=== PATIENT | female | born 1990 | race Caucasian/White ===

== ENCOUNTER 2019-04-13 05:03 | Emergency (ER) | payer BC, OTHER ==
--- OUTSIDE RECORDS SUMMARY | 2019-04-13 05:06 | XMS REPORT ---
:1990 [facility] Address [address] [place] [address] Dr. Arguelles [address] [place] [address] Care Team Providers Name Role Phone Unavailable Unavailable Unavailable Problems This patient has no known problems. Allergies, Adverse Reactions, Alerts This patient has no known allergies or adverse reactions. Medications This patient has no known medications.
--- OUTSIDE RECORDS SUMMARY | 2019-04-13 05:06 | XMS REPORT | Summary of Care ---
:1990 Author Organization [facility] - Health Address [address] [place] [address] Care Team Providers Name Role Phone Sergio Sebastien MARTIN Primary Care Provider Encounter Details Date Type Department Care Team Description 11/02/2018 Orders Only [facility] Doctor Unassigned, No [address] [facility] [place] [address] [address] [place] [phone] Allergies Active Allergy Reactions Severity Noted Date Comments Morphine Itching, Rash, Swelling 05/03/2016 documented as of this encounter (statuses as of 11/02/2018) Medications Medication Sig Dispensed Refills Start Date End Date Status metFORMIN 500 mg tablet Take 500 mg by 0 Active mouth daily. lisinopril-hydrochlorot Take 1 tablet by 0 Active hiazide 10-12.5 mg per mouth daily. tablet pantoprazole 40 mg EC Take 1 tablet by 30 tablet 0 03/30/2017 Active tablet mouth daily. ALPRAZolam 1 mg tablet TAKE 1 TABLET BY 2 04/02/2017 Active MOUTH AT BEDTIME ibuprofen 600 mg tablet TK 1 T PO BID 2 03/26/2017 Active Benzocaine (AMERICAINE) Insert into 1 Tube 0 06/23/2018 Active 20 % OintIndications: rectum every 4 Grade II hemorrhoids (four) hours as needed for Itching. documented as of this encounter (statuses as of 11/02/2018) Active Problems Problem Noted Date Abdominal pain 03/30/2017 Morbid obesity with body mass index of 50 or higher 03/30/2017 Intramural leiomyoma of uterus 05/03/2016 Abnormal menses 05/03/2016 Tubal ligation status 05/03/2016 documented as of this encounter (statuses as of 11/02/2018) Immunizations Name Administration Dates Next Due Tdap 05/03/2013 documented as of this encounter Social History Tobacco Use Types Packs/Day Years Used Date Never Smoker Smokeless Tobacco: Never Used Alcohol Use Drinks/Week oz/Week Comments No 0 Standard drinks or equivalent 0.0 Sex Assigned at Date Recorded Not on file Job Start Date Occupation Industry Not on file Not on file Not on file Travel History Travel Start Travel End No recent travel history available. documented as of this encounter Last Filed Vital Signs Not on filedocumented in this encounter Plan of Treatment Health Maintenance Due Date Last Done Comments VARICELLA VACCINES (1 of 2 - 13+ 2001 2-dose series) PAP SMEAR 2009 INFLUENZA VACCINE 12/07/2018 DTaP,Tdap,and Td Vaccines (2 - Td) 05/03/2023 05/03/2013 PNEUMOCOCCAL 0-64 YEARS COMBINED Aged Out No longer eligible based on SERIES patient's age to complete this topic documented as of this encounter Procedures Procedure Name Priority Date/Time Associated Diagnosis Comments CONSENT/REFUSAL FOR Routine 11/02/2018 8:37 PM CDT DIAGNOSIS AND TREATMENT documented in this encounter Results Not on filedocumented in this encounter Insurance Payer Benefit Plan Subscriber ID Effective Dates Phone Address Type / Group BCBS OF [facility] [id number] 2016-Any [phone] [address] PPO/POS [place] t [id number] [place] [address] documented as of this encounter
--- OUTSIDE RECORDS SUMMARY | 2019-04-13 05:07 | XMS REPORT | Summary of Care ---
:1990 Author Organization [facility] Address [address] [place] [address] Care Team Providers Name Role Phone Sebastien Hill Primary Care Provider Reason for Visit Reason Comments Epigastric Pain Vomiting Diarrhea Auth/Cert Status Reason Specialty Diagnoses / Referred By Referred To Procedures Contact Contact [facility] [address] [place] [address] Encounter Details Date Type Department Care Team Description 11/02/2018 Emergency ADC-Emergency Isreal Lockwood APN [address] [place], [place] [id number] Generalized abdominal pain (Primary Dx); Department Edwardo Conroy MD [address] [facility] [address] [place], [place] [id number] Epigastric pain [address] [place], [place] [id number] Allergies Active Allergy Reactions Severity Noted Date [...] hemorrhoids (four) hours as needed for Itching. sucralfate 1 gram Take 1 tablet by 30 tablet 0 11/02/2018 Active tabletIndications: mouth before Epigastric pain meals and at bedtime. ondansetron 4 mg Take 1 tablet by 20 tablet 0 11/02/2018 Active disintegrating mouth every 4 tabletIndications: (four) hours as Epigastric pain needed for Nausea and Vomiting (N/V). Pantoprazole (PROTONIX) Take 40 mg by 30 mg 0 11/02/2018 Active 40 mg delayed-release mouth daily. suspensionIndications: Epigastric pain documented as of this encounter (statuses as [...] of this encounter Last Filed Vital Signs Vital Sign Reading Time Taken Comments Blood Pressure 142/95 11/02/2018 11:00 PM CDT Pulse 61 11/02/2018 11:00 PM CDT Temperature 36.8 C (98.3 F) 11/02/2018 8:50 PM CDT Respiratory Rate 16 11/02/2018 11:00 PM CDT Oxygen Saturation 100% 11/02/2018 11:00 PM CDT Inhaled Oxygen Concentration - - Weight 97.1 kg (214 lb) 11/02/2018 8:50 PM CDT Height - - Body Mass Index 35.61 06/23/2018 11:06 AM CDT documented in this encounter Discharge Instructions InstructionsNewman, Edwardo, MD - 11/02/2018 RETURN FOR ANY QUESTIONS OR CONCERNS Today you were seen by Edwardo Conroy Jr., MD You were seen today for Chief Complaint Patient presents with Epigastric Pain Vomiting Diarrhea Your ER diagnosis was ICD-10-CM ICD-9-CM 1. Generalized abdominal pain R10.84 789.07 2. Epigastric pain R10.13 789.06 NO LIFE-THREATENING FINDINGS ON TODAY'S EXAM. YOUR PRESCRIPTIONS : Check out [employer] With Me for medication discounts Medication List ASK your doctor about these medications ALPRAZolam 1 mg tablet Commonly known as: XANAX Benzocaine 20 % Oint Commonly known as: AMERICAINE Insert into rectum every 4 (four) hours as needed for Itching. ibuprofen 600 mg tablet Commonly known as: IBU lisinopril-hydrochlorothiazide 10-12.5 mg per tablet Commonly known as: PRINZIDE,ZESTORETIC metFORMIN 500 mg tablet Commonly known as: GLUCOPHAGE pantoprazole 40 mg EC tablet Commonly known as: PROTONIX Take 1 tablet by mouth daily. ER precautions and follow up : 1. Return to ER if your symptoms should worsen or fail to improve within 72 hours. 2. The care provided in the emergency room was for acute problems only. 3. You should follow up with your primary care provider within 72 hours. 4. Fill and take all your medications as prescribed. 5. Make sure you are staying adequately hydrated. Busque attencion immediatamente si usted tiene los sitomas sigue, vuelve peor o si hay sitomas nuevas o para cualquiera preoccupacion incluyendo dolor del pecho , falta aire, se siente debile, mas fievre, mas dolor, nausea, vomitando, sangrando que no es normal, confusion, baja or pierdas conciencia. MAY FOLLOW-UP WITH A PROVIDER OF YOUR CHOICE, SUCH : 1. A PHYSICIAN OF YOUR CHOICE 2. [facility], . LOCATIONS IN [place] 3. [facility], [address] [place] [address]; OR, IF YOU WISH TO FOLLOW-UP WITHIN THE [facility], MAY TRY THESE OPTIONS (CLINIC APPOINTMENTS AVAILABLE ON IAVH-FB-BSLK BASIS): 1. SCHEDULE AN APPOINTMENT ONLINE AT WWW.[facility] 2. OR CALL THE [facility] ACCESS CENTER AT OR 3. OR CALL YOUR [facility] PHYSICIAN'S OFFICE DIRECTLY IF YOU ARE ALREADY AN ESTABLISHED [facility] PATIENT. [facility] RETURN TO WORK / SCHOOL EXCUSE Kaity Romeo WAS SEEN IN THE ER AND DISCHARGED 11/02/2018 TODAY, 10:38 PM & May return to Work / School / Incarceration on X with activity as tolerated indicated below. ___The following limitations apply until pt is seen by Physician and cleared to return to normal activity. _X_ Off for two days and return to activity as tolerated at work or school ___ No Sports ___ No work ___ Do not return until fever free for 24 hours. ___ No school EDWARDO CONROY Jr., MD [facility] EMERGENCY DEPRTMENT [address] [place] [address] [place] [address] ### The patient may have been given Narcotic pain medications during their stay in the ED that may show up on a Drug Screen. The hospital discharge paper work will identify these medications. AttachmentsThe following attachments cannot be sent through Care Everywhere.Peptic Ulcer Disease (All Causes) (German)Gastritis (Adult) (German )documented in this encounter Plan of Treatment Health [...] Procedure Name Priority Date/Time Associated Diagnosis Comments POCT TEST SHADY 11/02/2018 10:18 Generalized Results for this PM CDT abdominal pain procedure are in the results section. URINALYSIS STAT 11/02/2018 10:08 Generalized Results for this PM CDT abdominal pain procedure are in the results section. CBC WITH DIFFERENTIAL STAT 11/02/2018 9:40 Generalized Results for this PM CDT abdominal pain procedure are in the results section. CBC WITH DIFF Routine 11/02/2018 9:40 Generalized Results for this PM CDT abdominal pain procedure are in the results section. COMP. METABOLIC PANEL STAT 11/02/2018 9:40 Generalized Results for this (94564) PM CDT abdominal pain procedure are in the results section. LIPASE STAT 11/02/2018 9:40 Generalized Results for this PM CDT abdominal pain procedure are in the results section. documented in this encounter Results POCT TEST (11/02/2018 10:18 PM CDT) Pathologist [facility] POCT PREG Negative On board controls acceptable Present with C Line POCT PREG LOT # [id number] POCT PREG TEST DATE 04/07/2020 Specimen Urine - URINE, CLEAN CATCH URINALYSIS (11/02/2018 10:08 PM CDT) [facility] APPEARANCE Hazy (A) Clear [facility] COLOR Yellow Yellow [facility] PH 6.0 4.8 - 8.0 [facility] SP GRAVITY 1.025 1.003 - 1.030 [facility] GLU U QUAL Negative Negative [facility] BLOOD Negative Negative [facility] KETONES Negative Negative [facility] PROTEIN Trace (A) Negative [facility] UROBILIN 0.2 mg/dL 0-1.0 mg/dL [facility] BILIRUBIN Negative Negative [facility] NITRITE Negative Negative [facility] LEUK YESSENIA Negative Negative [facility] RBC/HPF 2 0 - 3 HPF [facility] WBC/HPF 2 0 - 5 HPF [facility] BACTERIA Few (A) Negative [facility] SQ EPITH 20 HPF [facility] Specimen Urine - URINE, CLEAN CATCH Performing Organization Address City/State/Zipcode Phone Number [facility] CLIA: [id number], [address] [place] [address] CBC WITH DIFFERENTIAL (11/02/2018 9:40 PM CDT) [facility] WBC 7.35 4.30 - 11.10 [facility] 10*3/L [facility] RBC 4.43 3.93 - 5.25 [facility] 10*6/L [facility] HGB 10.4 (L) 11.6 - 15.0 [facility] g/dL [facility] HCT 33.2 (L) 35.7 - 45.2 % [facility] MCV 74.9 (L) 80.6 - 95.5 fL [facility] MCH 23.5 (L) 25.9 - 32.8 pg [facility] MCHC 31.3 (L) 31.6 - 35.1 [facility] g/dL [facility] RDW-SD 40.7 39.0 - 49.9 fL [facility] RDW-CV 15.0 12.0 - 15.5 % [facility] PLT 228 166 - 358 [facility] 10*3/L [facility] MPV 12.5 9.5 - 12.9 fL [facility] NRBC/100 WBC 0.0 0.0 - 10.0 /100 [facility] WBCs [facility] NRBC x10^3 <0.01 10*3/L [facility] GRAN MAT (NEUT) % 51.5 % [facility] IMM GRAN % 0.10 % [facility] LYMPH % 40.8 % [facility] MONO % 5.4 % [facility] EOS % 1.8 % [facility] BASO % 0.4 % [facility] GRAN MAT x10^3(ANC) 3.78 1.88 - 7.09 [facility] 10*3/uL [facility] IMM GRAN x10^3 <0.03 0.00 - 0.06 [facility] 10*3/uL [facility] LYMPH x10^3 3.00 1.32 - 3.29 [facility] 10*3/uL [facility] MONO x10^3 0.40 0.33 - 0.92 [facility] 10*3/uL [facility] EOS x10^3 0.13 0.03 - 0.39 [facility] 10*3/uL [facility] BASO x10^3 0.03 0.01 - 0.07 [facility] 10*3/uL [facility] Specimen Blood - VENOUS Performing Organization Address City/State/Zipcode Phone Number [facility] CLIA: [id number], [address] [place] [address] LIPASE (11/02/2018 9:40 PM CDT) LIPASE 109 0 - 220 U/L [facility] Specimen Blood - VENOUS Performing Organization Address City/State/Zipcode Phone Number [facility] CLIA: [id number], [address] [place] [address] COMP. METABOLIC PANEL ([id number]) (11/02/2018 9:40 PM CDT) NA 145 135 - 145 [facility] mmol/L [facility] K 4.0 3.5 - 5.0 [facility] mmol/L [facility] CL 111 (H) 98 - 108 mmol/L [facility] CO2 TOTAL 26 23 - 31 mmol/L [facility] AGAP 8 2 - 16 [facility] BUN 9 7 - 23 mg/dL [facility] GLUCOSE 83 70 - 110 mg/dL [facility] CREATININE 0.56 0.50 - 1.04 [facility] mg/dL [facility] TOTAL BILI 0.3 0.1 - 1.1 mg/dL [facility] CALCIUM 9.1 8.6 - 10.6 [facility] mg/dL [facility] T PROTEIN 7.6 6.3 - 8.2 g/dL [facility] ALBUMIN 4.3 3.5 - 5.0 g/dL [facility] ALK PHOS 93 34 - 122 U/L [facility] ALT(SGPT) 17 9 - 51 U/L [facility] AST(SGOT) 16 13 - 40 U/L [facility] eGFR Calculation 127.1 mL/min/1.73m2 [facility] ([facility] LABORATORY [place]) eGFR Calculation 154.1 mL/min/1.73m2 [facility] () [facility] Specimen Blood - VENOUS Narrative Performed At Association of Glomerular Filtration Rate (GFR) [facility] LABORATORY and Staging of Kidney Disease* + + +- + | GFR (mL/min/1.73 m2)| With Kidney Damage|Without Kidney Damage + + +- + |>90| Stage one| Normal + + +- + |60-89|S tage two| Decreased GFR + + +- + |30-59|S tage three| Stage three + + +- + |15-29|S tage four | Stage four + + +- + |<15 (or dialysis)|Stage five | Stage five + + +- + *Each stage assumes the associated GFR level has been in effect for at least three months.Stages 1 to 5, with or without kidney disease, indicate chronic kidney disease. Notes: Determination of stages one and two (with eGFR >59mL/min/1.73 m2) requires estimation of kidney damage for at least three months as defined by structural or functional abnormalities of the kidney, manifested by either: Pathological abnormalities or Markers of kidney damage (including abnormalities in the composition of the blood or urine or abnormalities in imaging tests). Performing Organization Address City/State/Zipcode Phone Number [facility] CLIA: [id number], [address] [place] [address] [facility] [address] documented in this encounter Visit Diagnoses Diagnosis Generalized abdominal pain - Primary Abdominal pain, generalized Epigastric pain Abdominal pain, epigastric documented in this encounter Administered Medications Medication Order MAR Action Action Date Dose Rate Site FENTanyl PF (SUBLIMAZE (PF)) Given 11/02/2018 10:08 PM CDT 50 mcg injection 50 mcg 50 mcg, Slow IV Push, ONCE, 1 dose, 11/02/18 at 2230, STAT NaCl 0.9% (NS) bolus infusion New Bag 11/02/2018 10:08 PM CDT 1,000 mL 999 mL/hr 1,000 mL at 999 mL/hr, 1,000 mL, IV Infusion, ONCE, 1 dose, 11/02/18 at 2230, STAT proMETHazine (PHENERGAN) 12.5 mg in NaCl Given 11/02/2018 10:30 PM CDT 12.5 mg 0.9% (NS) 50 mL piggyback 12.5 mg, IV Piggyback, ONCE, 1 dose, 11/02/18 at 2230, 50 mL documented in this encounter Insurance Payer Benefit Plan Subscriber ID Effective Dates Phone Address Type / Group [facility] [id number] 2016-Any [phone] [address] PPO/POS [place] t [id number] [place] [address] Yao Sequeira ([place]) [place] [address] documented as of this encounter"
[2019-04-13] MEDS ORDERED: MEPERIDINE HCL 25 MG/0.5 ML ONE ×2 (05:35→07:39)
[2019-04-13] MEDS ORDERED: ONDANSETRON 4 MG/2 ML VIAL ONE (05:35)
[2019-04-13] MEDS ORDERED: NA CHLORIDE 0.9% 1,000 ML ONE (05:36)
[2019-04-13 05:45] LABS: Absolute Lymphocytes (CBC) 1.7 K/uL (0.7-4.9); Basophils % 0.5 % (0-1.3); Hematocrit 36.8 % (36.0-45.0); Lymphocytes % 28.4 % (15.3-44.8); MPV 9.8 fL (7.6-11.3); RBC Red Blood Cell Count 4.86 M/uL (3.86-4.86)
[2019-04-13 06:06] LABS: ALT/SGPT 18 U/L (12-78); AST/SGOT 8 U/L (15-37); Albumin 3.3 g/dL (3.4-5.0); Alkaline Phosphatase 78 U/L (45-117); BUN Blood Urea Nitrogen 9 mg/dL (7-18); Bicarbonate 26 mmol/L (21-32); Bilirubin Direct < 0.1 mg/dL (0-0.2); Bilirubin Total 0.3 mg/dL (0.2-1.0); Glucose Level 120 mg/dL (74-106); Lipase 95 U/L (73-393); Potassium 3.7 mmol/L (3.5-5.1); Protein, Total 6.9 g/dL (6.4-8.2); Sodium Level 143 mmol/L (136-145)
--- NOTE | 2019-04-13 07:09 | RAD REPORT ---
EXAM DESCRIPTION: CTAbdomen Pelvis W Contrast - 04/13/2019 6:54 am CLINICAL HISTORY: Abdominal pain. ABD PAIN COMPARISON: No comparisons TECHNIQUE: Biphasic CT imaging of the abdomen and pelvis was performed with 100 ml non-ionic IV cont rast. All CT scans are performed using dose optimization technique as appropriate and may include automated exposure control or mA/KV adjustment according to patient size. FINDINGS: The lung bases are clear.Postsurgical changes of gastric bypass noted. Cholecystectomy clips are seen. The intrahepatic biliary tree is mildly prominent. The spleen is mild ly enlarged. The pancreas, adrenal glands and kidneys show no acute process. Several thickened small bowel loops are present in the right aspect of the abdomen. No bowel obstruct ion seen. No free air, significant free fluid collections or evidence of abscess The appendix is not identified as a discrete structure, however, no secondary findings of appendicitis are identified. No evidence of significant lymphadenopathy. No suspicious bony findings. IMPRESSION: Several nonspecific thickened small bowel loops are seen in the right abdomen may repres ent findings secondary to infection or inflammation. No bowel obstruction evident. Postsurgical changes of gastric bypass procedure noted.
[2019-04-13 07:23] LABS: Urine Blood NEGATIVE (NEG); Urine Glucose NEGATIVE (NEG); Urine Protein NEGATIVE (NEG); Urine Specific Gravity 1.015 (1.005-1.030); Urine pH 8.5 (5.0-7.0)
[2019-04-13] MEDS ORDERED: LIDOCAINE VISCOUS 2% SOLN 15 ML UDC ONE (08:32)
[2019-04-13] MEDS ORDERED: MAGNES/ALUMIN/SIMET 30ML UCUP ONE (08:32)
[2019-04-13 08:50] VITALS: TEMP 98.2
[2019-04-13 08:54] VITALS: BP 138/94; O2SAT 100
--- NOTE | 2019-04-13 09:13 | ER ---
Nurse's Notes [facility] Name: Kaity Romeo Age: 28 yrs Sex: Female : 1990 Arrival Date: 04/13/2019 Time: 05:04 Bed 20 Private MD: Diagnosis: Generalized abdominal pain Presentation: 04/13 05:09 Presenting complaint: Patient states: epigastric and bilateral upper abd pain for sg several hours, reports a gastic bypass procedure done in [place] February 18, having taken acid reducers today but no change in pain. Transition of care: patient was not received from another setting of care. Onset of symptoms was April 13, 2019. Risk Assessment: Do you want to hurt yourself or someone else? Patient reports no desire to harm self or others. Initial Sepsis Screen: Does the patient meet any 2 criteria? No. Patient's initial sepsis screen is negative. Does the patient have a suspected source of infection? No. Patient's initial sepsis screen is negative. Care prior to arrival: None. 05:09 Method Of Arrival: Ambulatory sg 05:09 Acuity: GAGE 3 sg Triage Assessment: 05:20 General: Appears uncomfortable, ill, well groomed, well developed, well nourished, sg Behavior is calm, cooperative, appropriate for age. Pain: Complains of pain in epigastric area, right upper quadrant and left upper quadrant Pain currently is 10 out of 10 on a pain scale. Quality of pain is described as burning. Neuro: Level of Consciousness is awake, alert, obeys commands, Oriented to person, place, time, Speech is normal, Facial symmetry appears normal. Cardiovascular: Capillary refill is brisk in bilateral fingers Patient's skin is warm and dry. Chest pain is denied. Respiratory: Airway is patent Respiratory effort is even, unlabored, Respiratory pattern is regular, symmetrical. GI: Bowel sounds hypoactive in right lower quadrant and left lower quadrant Reports upper abdominal pain, constipation, nausea. : No signs and/or symptoms were reported regarding the genitourinary system. Derm: Skin is pink, warm \\T\\ dry. Musculoskeletal: Circulation, motion, and sensation intact. Range of motion: intact in all extremities. Historical: - Allergies: 05:12 Morphine; sg - Home Meds: 05:43 Iron CR Oral [Active]; "Antacid" [Active]; sg - PMHx: 05:43 Anemia; sg 06:23 Ulcers; sg - PSHx: 05:12 Gastric Bypass; Cholecystectomy; Appendectomy; sg 06:20 Uterine Ablation; Tubal ligation; sg - Immunization history:: Adult Immunizations up to date. - Social history:: Smoking status: Patient/guardian denies using tobacco. - Ebola Screening: : Patient negative for fever greater than or equal to 101.5 degrees Fahrenheit, and additional compatible Ebola Virus Disease symptoms Patient denies exposure to infectious person Patient denies travel to an Ebola-affected area in the 21 days before illness onset No symptoms or risks identified at this time. Screenin:20 Abuse screen: Denies threats or abuse. Denies injuries from another. Nutritional sg screening: No deficits noted. Tuberculosis screening: No symptoms or risk factors identified. Never had TB. Fall Risk None identified. Assessment: 05:45 Reassessment: Patient appears in no apparent distress at this time. pt drinking PO sg contrast at this time. 06:09 Reassessment: Patient appears in no apparent distress at this time. Patient and/or sg family updated on plan of care and expected duration. Pain level reassessed. Patient is alert, oriented x 3, equal unlabored respirations, skin warm/dry/pink. awaiting CT scan at this time, awaiting lab results, pt family and friends remain at bedside at this time, pt appears more comfortable after IV demerol, will continue to monitor. 06:10 Reassessment: Patient appears in no apparent distress at this time. Patient is alert, sg oriented x 3, equal unlabored respirations, skin warm/dry/pink. pt encouraged to provide a urine specimen, pt unable to urinate at this time, awaiting a specimen as ordered. 06:20 Reassessment: Patient appears in no apparent distress at this time. Celestino MOLINA at sg bedside at this time. 07:10 Reassessment: Patient appears in no apparent distress at this time. Patient and/or em family updated on plan of care and expected duration. Pain level reassessed. Patient is alert, oriented x 3, equal unlabored respirations, skin warm/dry/pink. rates pain 4/10. 08:25 Reassessment: Patient appears in no apparent distress at this time. reports pain is em coming back rates pain 6/10, provider notified. Vital Signs: 05:11 BP 147 / 90; Pulse 98; Resp 22; Pulse Ox 100% on R/A; Weight 81.65 kg (R); Height 5 ft. sg 5 in. (165.10 cm); Pain 10/10; 05:11 Temp 98.2; sg 06:22 BP 142 / 88; Pulse 90; Resp 18; Pulse Ox 100% on R/A; sg 07:10 BP 140 / 104; Pulse 60; Resp 18; Pulse Ox 98% on R/A; Pain 4/10; em 08:35 BP 138 / 94; Pulse 57; Resp 18; Pulse Ox 100% on R/A; Pain 6/10; em 05:11 Body Mass Index 29.95 (81.65 kg, 165.10 cm) sg ED Course: 05:04 Patient arrived in ED. cl3 05:09 Paul Cantu, RN is Primary Nurse. sg 05:09 Arm band placed on. sg 05:09 Patient has correct armband on for positive identification. Bed in low position. Call sg light in reach. Side rails up X2. Pulse ox on. NIBP on. Warm blanket given. Head of bed elevated. 05:11 Triage completed. sg 05:13 Dada Boggs MD is Attending Physician. pkl 05:30 No provider procedures requiring assistance completed. Initial lab(s) drawn, by me, sg sent to lab. Inserted saline lock: 20 gauge in right antecubital area, using aseptic technique. Blood collected. 06:09 Celestino Link PA is PHCP. jmm 06:09 Nelson Galloway MD is Attending Physician. jmm 06:[address] back from [address]. sg 06:54 CT Abd/Pelvis - PO and IV Contrast In Process Unspecified. EDMS 08:09 Yo Ortega MD is Referral Physician. jmm 08:41 IV discontinued, intact, bleeding controlled, No redness/swelling at site. Pressure em dressing applied. Administered Medications: 05:38 Drug: Demerol 25 mg Route: IVP; Site: right antecubital; sg 07:08 Follow up: Response: No adverse reaction; Marked relief of symptoms; Pain is decreased; em RASS: Alert and Calm (0) 05:39 Drug: Zofran 4 mg Route: IVP; Site: right antecubital; sg 07:08 Follow up: Response: No adverse reaction; Marked relief of symptoms; Nausea is decreasedem 05:39 Drug: NS 0.9% 1000 ml Route: IV; Rate: 1 bolus; Site: right antecubital; sg 07:09 Follow up: IV Status: Completed infusion; IV Intake: 1000ml em 07:43 Drug: Demerol 25 mg Route: IVP; Site: right antecubital; em 08:40 Follow up: Response: No adverse reaction; Marked relief of symptoms; Pain is unchanged, em physician notified; RASS: Alert and Calm (0) 08:39 Drug: GI Cocktail without - (Maalox Suspension 30 ml, Lidocaine Liquid 2 % 15 em ml) Route: PO; 08:40 Follow up: Response: Medication administered at discharge. em Intake: 07:09 IV: 1000ml; Total: 1000ml. em Outcome: 08:09 Discharge ordered by . danilo 08:35 Discharged to home ambulatory, with family. em 08:35 Condition: good 08:35 Discharge instructions given to patient, family, Instructed on discharge instructions, follow up and referral plans. medication usage, Demonstrated understanding of instructions, follow-up care, medications, Prescriptions given X 1. 08:43 Patient left the ED. em Signatures: Dispatcher [employer] Paul Hilton, Dada Mcneal RN, MD MD pkl Mickail, Joel, PA PA Adis Scott, LABORATORY MACHINIST LABORATORY MACHINIST em Odell Le cl3
--- NOTE | 2019-04-13 09:14 | EDPHYS ---
Physician Documentation [facility] Name: Kaity Romeo Age: 28 yrs Sex: Female : 1990 Arrival Date: 04/13/2019 Time: 05:04 Bed 20 Private MD: ED Physician Nelson Galloway HPI: 04/13 06:32 This 28 yrs old Female presents to ER via Ambulatory with complaints of jmm Abdominal Pain. 06:32 The patient presents with abdominal pain in the epigastric area. Onset: The jmm symptoms/episode began/occurred gradually, at 02:00. The symptoms do not radiate. Associated signs and symptoms: Pertinent negatives: nausea and vomiting, diarrhea. The symptoms are described as achy, sharp. Modifying factors: The symptoms are alleviated by nothing, the symptoms are aggravated by nothing. This is a 28 year old female with a history of anemia, PUD that presents to the ED with complaints of epigastric abdominal pain which she attributes to ulcers. This episode pain worsened just prior to arrival. Denies vomiting or diarrhea. . Historical: - Allergies: 05:12 Morphine; sg - Home Meds: 05:43 Iron CR Oral [Active]; "Antacid" [Active]; sg - PMHx: 05:43 Anemia; sg 06:23 Ulcers; sg - PSHx: 05:12 Gastric Bypass; Cholecystectomy; Appendectomy; sg 06:20 Uterine Ablation; Tubal ligation; sg - Immunization history:: Adult Immunizations up to date. - Social history:: Smoking status: Patient/guardian denies using tobacco. - Ebola Screening: : Patient negative for fever greater than or equal to 101.5 degrees Fahrenheit, and additional compatible Ebola Virus Disease symptoms Patient denies exposure to infectious person Patient denies travel to an Ebola-affected area in the 21 days before illness onset No symptoms or risks identified at this time. ROS: 06:34 Constitutional: Negative for fever, chills, and weight loss, Cardiovascular: Negative jmm for chest pain, palpitations, and edema, Respiratory: Negative for shortness of breath, cough, wheezing, and pleuritic chest pain. 06:34 Back: Negative for injury and pain, Neuro: Negative for headache, weakness, numbness, tingling, and seizure. 06:34 Abdomen/GI: Positive for abdominal pain, Negative for nausea and vomiting, diarrhea. 06:34 All other systems are negative. Exam: 06:34 Constitutional: This is a well developed, well nourished patient who is awake, alert, jmm and in no acute distress. Head/Face: atraumatic. Eyes: EOMI, no conjunctival erythema appreciated ENT: Moist Mucus Membranes Neck: Trachea midline, Supple Chest/axilla: Normal chest wall appearance and motion. Cardiovascular: Regular rate and rhythm. No edema appreciated Respiratory: Normal respirations, no respiratory distress appreciated 06:34 Back: Normal ROM Skin: General appearance color normal MS/ Extremity: Moves all extremities, no obvious deformities appreciated, no edema noted to the lower extremities Neuro: Awake and alert, normal gait Psych: Behavior is normal, Mood is normal, Patient is cooperative and pleasant 06:34 Abdomen/GI: Inspection: abdomen appears normal, Bowel sounds: normal, Palpation: soft, mild abdominal tenderness, in the epigastric area. Vital Signs: 05:11 BP 147 / 90; Pulse 98; Resp 22; Pulse Ox 100% on R/A; Weight 81.65 kg (R); Height 5 ft. sg 5 in. (165.10 cm); Pain 10/10; 05:11 Temp 98.2; sg 06:22 BP 142 / 88; Pulse 90; Resp 18; Pulse Ox 100% on R/A; sg 07:10 BP 140 / 104; Pulse 60; Resp 18; Pulse Ox 98% on R/A; Pain 4/10; em 08:35 BP 138 / 94; Pulse 57; Resp 18; Pulse Ox 100% on R/A; Pain 6/10; em 05:11 Body Mass Index 29.95 (81.65 kg, 165.10 cm) MDM: 06:09 Patient medically screened. [facility] 08:08 Data reviewed: vital signs, nurses notes. Counseling: I had a detailed discussion with [facility] the patient and/or guardian regarding: the historical points, exam findings, and any diagnostic results supporting the discharge/admit diagnosis, lab results, radiology results, the need for outpatient follow up, to return to the emergency department if symptoms worsen or persist or if there are any questions or concerns that arise at home. ED course: Patient is alert and non toxic in appearance in the ED. Patient advised to follow up with GI or bariatric surgery for reevaluation. Patient understood and agrees with the plan of care. . 04/13 05:32 Order name: Basic Metabolic Panel; Complete Time: 06:10 sg 04/13 05:32 Order name: CBC with Diff; Complete Time: 06:10 sg 04/13 05:32 Order name: Creatinine for Radiology; Complete Time: 06:10 sg 04/13 05:32 Order name: Hepatic Function; Complete Time: 06:10 sg 04/13 05:32 Order name: Lipase; Complete Time: 06:10 sg 04/13 06:41 Order name: Urine Dipstick--Ancillary (enter results); Complete Time: 07:29 mt 04/13 05:32 Order name: CT Abd/Pelvis - PO and IV Contrast; Complete Time: 07:16 sg 04/13 05:32 Order name: IV Saline Lock; Complete Time: 05:39 04/13 06:41 Order name: Urine --Ancillary (enter results); Complete Time: 07:29 mt 04/13 05:32 Order name: Labs collected and sent; Complete Time: 05:39 sg 04/13 05:32 Order name: Urine Dipstick-Ancillary (obtain specimen); Complete Time: 06:41 04/13 05:32 Order name: Urine Test (obtain specimen); Complete Time: 06:41 sg Administered Medications: 05:38 Drug: Demerol 25 mg Route: IVP; Site: right antecubital; sg 07:08 Follow up: Response: No adverse reaction; Marked relief of symptoms; Pain is decreased; em RASS: Alert and Calm (0) 05:39 Drug: Zofran 4 mg Route: IVP; Site: right antecubital; sg 07:08 Follow up: Response: No adverse reaction; Marked relief of symptoms; Nausea is decreasedem 05:39 Drug: NS 0.9% 1000 ml Route: IV; Rate: 1 bolus; Site: right antecubital; sg 07:09 Follow up: IV Status: Completed infusion; IV Intake: 1000ml em 07:43 Drug: Demerol 25 mg Route: IVP; Site: right antecubital; em 08:40 Follow up: Response: No adverse reaction; Marked relief of symptoms; Pain is unchanged, em physician notified; RASS: Alert and Calm (0) 08:39 Drug: GI Cocktail without - (Maalox Suspension 30 ml, Lidocaine Liquid 2 % 15 em ml) Route: PO; 08:40 Follow up: Response: Medication administered at discharge. em Disposition: 09:35 Co-signature as Attending Physician, Nelson Galloway MD I agree with the assessment and [facility] plan of care. Disposition: 04/13/19 08:09 Discharged to Home. Impression: Generalized abdominal pain. - Condition is Stable. - Discharge Instructions: Abdominal Pain, Adult. - Prescriptions for Carafate 100 mg/mL Oral suspension - take 10 milliliter by ORAL route 4 times per day on an empty stomach 1 hour before meals and at bedtime; 200 milliliter. - Medication Reconciliation Form, Thank You Letter, Antibiotic Education, Prescription Opioid Use form. - Follow up: Yo Ortega MD; When: 2 - 3 days; Reason: Recheck today's complaints, Continuance of care, Re-evaluation by your physician. Signatures: Dispatcher [employer] EDMS Paul Cantu RN RN sg Anderson, Corey, MD MD cha Mickail, Joel, PA PA [facility] Adis Tang, [employer] F[employer]ER [employer]ER em Corrections: (The following items were deleted from the chart) 08:43 08:09 04/13/2019 08:09 Discharged to Home. Impression: Generalized abdominal pain. em Condition is Stable. Forms are Medication Reconciliation Form, Thank You Letter, Antibiotic Education, Prescription Opioid Use. Follow up: Yo Ortega; When: 2 - 3 days; Reason: Recheck today's complaints, Continuance of care, Re-evaluation by your physician. danilo
== END 2019-04-13 08:43 | disposition home or self-care (01) ==
LOC: ER 05:03
DX: R10.84 Generalized abdominal pain (principal); D64.9 Anemia, unspecified; K25.9 Gastric ulcer, unspecified as acute or chronic, without hemorrhage or perforation
CPT/HCPCS: 96361; 85025; 80048; 36415; 81025; 80076; 81003; 83690; 74177; 96375; 96374; 99284; Q9967; J2175 ×2; J7030; J2405

== ENCOUNTER 2019-05-26 09:07 | Emergency (ER) | payer BC ==
--- OUTSIDE RECORDS SUMMARY | 2019-05-26 09:11 | XMS REPORT ---
:1990 [facility] Address [address] [place] [address] Dr. Arguelles [address] [place] [id number] Care Team Providers Name Role Phone Unavailable Unavailable Unavailable Problems This patient has no known problems. Allergies, Adverse Reactions, Alerts This patient has no known allergies or adverse reactions. Medications This patient has no known medications.
[2019-05-26] MEDS ORDERED: ONDANSETRON 4 MG/2 ML VIAL ONE (09:44)
[2019-05-26] MEDS ORDERED: NA CHLORIDE 0.9% 1,000 ML ONE (09:44)
[2019-05-26] MEDS ORDERED: FENTANYL CITR 100 MCG/2 ML ONE ×2 (09:44→11:14)
[2019-05-26 10:01] LABS: Absolute Lymphocytes (CBC) 0.9 K/uL (0.7-4.9); Basophils % 0.4 % (0-1.3); Hematocrit 38.6 % (36.0-45.0); Lymphocytes % 14.1 % (15.3-44.8); MPV 9.8 fL (7.6-11.3); RBC Red Blood Cell Count 4.87 M/uL (3.86-4.86)
[2019-05-26 10:20] LABS: BUN Blood Urea Nitrogen 9 mg/dL (7-18); Bicarbonate 28 mmol/L (21-32); Glucose Level 122 mg/dL (74-106); Potassium 3.4 mmol/L (3.5-5.1); Sodium Level 139 mmol/L (136-145)
[2019-05-26 10:21] LABS: Urine Bacteria >50 /HPF (<20); Urine Culture Reflex Order REFLEXED; Urine Mucus 2+ /HPF (NONE SEEN); Urine RBC <5 /HPF (NONE SEEN); Urine Urothelial Cells <5 /HPF (NONE SEEN)
[2019-05-26] MEDS ORDERED: CEFTRIAXONE/SWI 1gm 1 GM/10 ML SYR ONE (11:05)
--- NOTE | 2019-05-26 11:13 | RAD REPORT ---
EXAM DESCRIPTION: CT - Abdomen Pelvis W Contrast - 05/26/2019 10:57 am CLINICAL HISTORY: r/o pyelonephritis, right flank pain for 2 days ; prior gastric bypass, cholecyste ctomy and appendectomy COMPARISON: Abdomen Pelvis W Contrast dated 04/13/2019 TECHNIQUE: Biphasic, helical CT imaging of the abdomen and pelvis was performed following 100 ml non -ionic IV contrast. No oral contrast. All CT scans are performed using dose optimization technique as appropriate and may include automated exposure control or mA/KV adjustment according to patient size. FINDINGS: No suspicious findings in the lung bases. The liver, spleen, and pancreas show no suspicious findings. Biliary tree is prominent but not outsid e of normal range for post cholecystectomy status. Right renal parenchymal enhancement is heterogeneous in the posterior mid and lower right kidney. Lef t renal enhancement is normal. No abscess or focal mass lesion. No hydronephrosis or obstructing calc ulus. No perinephric abnormalities. No bladder abnormalities. No adrenal abnormalities. No dilated bowel loops or bowel wall thickening. Appendix is not clearly defined. No suspicion for ap pendicitis. Gastric surgical changes are noted. No free air, free fluid or inflammatory stranding. N o hernia, mass or bulky lymphadenopathy. Uterus and ovaries show no suspicious findings. No suspicious bony findings. IMPRESSION: Mild right-sided pyelonephritis.
--- NOTE | 2019-05-26 11:21 | ER ---
Nurse's Notes [facility] Name: Kaity Romeo Age: 28 yrs Sex: Female : 1990 Arrival Date: 05/26/2019 Time: 09:11 Bed 7 Private MD: Diagnosis: Acute tubulo-interstitial nephritis Presentation: 05/26 09:22 Presenting complaint: Patient states: right low/mid back pain x 2 days and last night sv started having right flank RLQ pain, denies urinary symptoms, fever yesterday 102.7. Transition of care: patient was not received from another setting of care. Onset of symptoms was May 24, 2019. Risk Assessment: Do you want to hurt yourself or someone else? Patient reports no desire to harm self or others. Initial Sepsis Screen: Does the patient meet any 2 criteria? HR > 90 bpm. No. Patient's initial sepsis screen is negative. Does the patient have a suspected source of infection? No. Patient's initial sepsis screen is negative. Care prior to arrival: Medication(s) given: Azo and Tylenol taken yesterday. 09:22 Method Of Arrival: Ambulatory sv 09:22 Acuity: GAGE 3 sv Triage Assessment: 09:25 General: Appears in no apparent distress. uncomfortable, well developed, Behavior is sv calm, cooperative, appropriate for age. Pain: Complains of pain in right mid back and right low back Pain radiates to posterior aspect of right lateral abdomen and anterior aspect of right lateral abdomen Pain currently is 7 out of 10 on a pain scale. Pain began 2-3 days ago. Is continuous. Neuro: Level of Consciousness is awake, alert, obeys commands, Oriented to person, place, time, situation, Moves all extremities. Full function Gait is steady. Respiratory: Airway is patent Respiratory effort is even, unlabored, Respiratory pattern is regular, symmetrical. GI: Abdomen is flat. : Denies burning with urination, urinary frequency, urgency. Derm: Skin is intact, Skin is pink, warm \T\ dry. 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 - Coronavirus screen:: The patient has NOT traveled to [place] in the past 14 days. Proceed with normal triage process as indicated. The patient has NOT had contact with known/suspected case of Coronavirus? Proceed with normal triage procedures. - Social history:: Smoking status: Patient denies any tobacco usage or history of. Patient uses alcohol, but reports only rare drinking. - Ebola Screening: : No symptoms or risks identified at this time. Screenin:25 Abuse screen: Denies threats or abuse. Denies injuries from another. Nutritional sv screening: No deficits noted. Tuberculosis screening: No symptoms or risk factors identified. Fall Risk None identified. Assessment: 09:45 Reassessment: Patient appears in no apparent distress at this time. No changes from previously documented assessment. Patient and/or family updated on plan of care and expected duration. Pain level reassessed. Patient is alert, oriented x 3, equal unlabored respirations, skin warm/dry/pink. 11:14 Reassessment: Patient appears in no apparent distress at this time. Patient and/or sv family updated on plan of care and expected duration. Pain level reassessed. Patient is alert, oriented x 3, equal unlabored respirations, skin warm/dry/pink. Pt reports pain is back, informed Key COTTON, medication ordered. 11:33 Reassessment: Patient appears in no apparent distress at this time. Patient and/or sv family updated on plan of care and expected duration. Pain level reassessed. Patient is alert, oriented x 3, equal unlabored respirations, skin warm/dry/pink. Vital Signs: 09:25 BP 139 / 98; Pulse 104; Resp 16; Temp 98.9; Pulse Ox 99% ; Weight 77.11 kg; Height 5 sv ft. 5 in. (165.10 cm); Pain 7/10; 10:15 BP 138 / 103; Pulse 88; Resp 18; Pulse Ox 100% ; sv 11:18 BP 142 / 100; Pulse 92; Resp 18; Pulse Ox 100% ; sv 11:33 Pain 4/10; sv 09:25 Body Mass Index 28.29 (77.11 kg, 165.10 cm) ED Course: 09:11 Patient arrived in ED. ag5 09:22 Etta Rivera, RN is Primary Nurse. sv 09:22 Arm band placed on Patient placed in an exam room, on a stretcher, on pulse oximetry. sv 09:23 Key Acosta [facility]C [facility]. kb 09:23 Garrett Moran MD is Attending Physician. kb 09:24 Triage completed. sv 09:25 Patient has correct armband on for positive identification. Bed in low position. Call sv light in reach. Adult w/ patient. Pulse ox on. NIBP on. Door closed. Warm blanket given. Head of bed elevated. 09:30 Urine collected: clean catch specimen, cloudy, brenda colored. sv 09:37 Urine --Ancillary (enter results) Sent. sv 09:37 Urine Dipstick--Ancillary (enter results) Sent. sv 09:37 Urine Microscopic Only Sent. sv 09:45 Inserted saline lock: 22 gauge in right forearm, using aseptic technique. ,using sv aseptic technique. diffusics Blood collected. Flushed right forearm with 2 ml normal saline. 10:18 Awaiting lab results, Awaiting CT Scan. sv 10:59 CT Abd/Pelvis - IV Contrast Only In Process Unspecified. EDMS 11:34 No provider procedures requiring assistance completed. IV discontinued, intact, sv bleeding controlled, No redness/swelling at site. Pressure dressing applied. Administered Medications: 09:46 Drug: NS 0.9% 1000 ml Route: IV; Rate: 1000 ml; Site: right forearm; sv 10:40 Follow up: Response: No adverse reaction; IV Status: Completed infusion; IV Intake: sv 1000ml 09:46 Drug: Zofran 4 mg Route: IVP; Site: right forearm; sv 10:40 Follow up: Response: No adverse reaction sv 09:48 Drug: fentaNYL (PF) 25 mcg {Note: RASS2.} Route: IVP; Site: right forearm; sv 10:40 Follow up: Response: No adverse reaction; Pain is decreased; RASS: Alert and Calm (0) sv 11:14 Drug: fentaNYL (PF) 25 mcg {Note: RASS2.} Route: IVP; Site: right forearm; sv 11:33 Follow up: Pain 4/10 Adult; Response: No adverse reaction; Pain is decreased; RASS: sv Alert and Calm (0) 11:16 Drug: Rocephin 1 grams Route: IV; Rate: calculated rate; Site: right forearm; sv 11:18 Follow up: Response: No adverse reaction; IV Status: Completed infusion; IV Intake: 10mlsv Intake: 10:40 IV: 1000ml; Total: 1000ml. sv 11:18 IV: 10ml; Total: 1010ml. sv Outcome: 11:21 Discharge ordered by . july 11:34 Discharged to home ambulatory, with family, Pt's family driving her home sv 11:34 Condition: stable 11:34 Discharge instructions given to patient, Instructed on discharge instructions, follow up and referral plans. medication usage, increase fluid hydration Demonstrated understanding of instructions, follow-up care, medications, increase fluid hydration Prescriptions given X 3. 11:35 Patient left the ED. sv Addendum: 06/02/2019 10:46 Addendum: Culture Results: Positive urine culture. Phone call Attempt #1 no answer, h b voice mail not set up. Signatures: Dispatcher [employer] EDUT Key Acosta, Etta Griffiths RN RN Precious Olsen RN RN Darvin Mcrae ag5 Corrections: (The following items were deleted from the chart) 05/26 11:18 11:14 fentaNYL (PF) 25 mcg IVP in right forearm sv sv 11:19 09:48 fentaNYL (PF) 25 mcg IVP in right forearm sv sv
--- NOTE | 2019-05-26 11:22 | EDPHYS ---
Physician Documentation [facility] Name: Kaity Romeo Age: 28 yrs Sex: Female : 1990 Arrival Date: 05/26/2019 Time: 09:11 Bed 7 Private MD: ED Physician Garrett Moran HPI: 05/26 10:27 This 28 yrs old Female presents to ER via Ambulatory with complaints of kb Possible Kidney Stone. 10:27 The patient complains of pain in the right flank. The pain radiates to the abdomen. The kb patient has experienced similar episodes in the past, today's symptoms are similar, to previous kidney stones without the urinary symptoms. The patient has not recently seen a physician. 10:28 Onset: The symptoms/episode began/occurred 2 day(s) ago. Modifying factors: The kb symptoms are alleviated by nothing. the symptoms are aggravated by palpation/percussion. Associated signs and symptoms: Pertinent positives: fever, Pertinent negatives: diarrhea, dizziness, dysuria, urinary frequency, headache, hematuria, nausea, pain radiating to the lower extremities, vomiting. Severity of pain: At its worst the pain was moderate severe in the emergency department the pain is unchanged. Pt reports right flank pain that started 2 days ago. Yesterday had a fever of 102. Reports it feels similar to a kidney stone, but she hasn't had any urinary symptoms. 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 - Coronavirus screen:: The patient has NOT traveled to [place] in the past 14 days. Proceed with normal triage process as indicated. The patient has NOT had contact with known/suspected case of Coronavirus? Proceed with normal triage procedures. - Social history:: Smoking status: Patient denies any tobacco usage or history of. Patient uses alcohol, but reports only rare drinking. - Ebola Screening: : No symptoms or risks identified at this time. ROS: 10:23 ENT: Negative for injury, pain, and discharge, Neck: Negative for injury, pain, and kb swelling, Cardiovascular: Negative for chest pain, palpitations, and edema, Respiratory: Negative for shortness of breath, cough, wheezing, and pleuritic chest pain, Abdomen/GI: Negative for abdominal pain, nausea, vomiting, diarrhea, and constipation, MS/Extremity: Negative for injury and deformity, Skin: Negative for injury, rash, and discoloration, Neuro: Negative for headache, weakness, numbness, tingling, and seizure. 10:23 Constitutional: Positive for fever. 10:23 : Positive for flank pain. Exam: 10:26 Constitutional: This is a well developed, well nourished patient who is awake, alert, kb and in no acute distress. Head/Face: Normocephalic, atraumatic. Neck: Trachea midline, no thyromegaly or masses palpated, and no cervical lymphadenopathy. Supple, full range of motion without nuchal rigidity, or vertebral point tenderness. No Meningismus. Chest/axilla: Normal chest wall appearance and motion. Nontender with no deformity. No lesions are appreciated. Cardiovascular: Regular rate and rhythm with a normal S1 and S2. No gallops, murmurs, or rubs. Normal PMI, no JVD. No pulse deficits. Respiratory: Lungs have equal breath sounds bilaterally, clear to auscultation and percussion. No rales, rhonchi or wheezes noted. No increased work of breathing, no retractions or nasal flaring. Abdomen/GI: Soft, non-tender, with normal bowel sounds. No distension or tympany. No guarding or rebound. No evidence of tenderness throughout. Skin: Warm, dry with normal turgor. Normal color with no rashes, no lesions, and no evidence of cellulitis. MS/ Extremity: Pulses equal, no cyanosis. Neurovascular intact. Full, normal range of motion. Neuro: Awake and alert, GCS 15, oriented to person, place, time, and situation. Cranial nerves II-XII grossly intact. Motor strength 5/5 in all extremities. Sensory grossly intact. Cerebellar exam normal. Normal gait. 10:26 Back: CVA tenderness, that is moderate, that is severe, is noted on the right. Vital Signs: 09:25 BP 139 / 98; Pulse 104; Resp 16; Temp 98.9; Pulse Ox 99% ; Weight 77.11 kg; Height 5 sv ft. 5 in. (165.10 cm); Pain 7/10; 10:15 BP 138 / 103; Pulse 88; Resp 18; Pulse Ox 100% ; sv 11:18 BP 142 / 100; Pulse 92; Resp 18; Pulse Ox 100% ; sv 11:33 Pain 4/10; sv 09:25 Body Mass Index 28.29 (77.11 kg, 165.10 cm) sv MDM: 09:23 Patient medically screened. kb 10:23 Data reviewed: vital signs, nurses notes. Data interpreted: Pulse oximetry: on room air kb is 99 %. Interpretation: normal. 10:27 Differential diagnosis: nephrolithiasis, pyelonephritis, UTI. kb 11:20 Counseling: I had a detailed discussion with the patient and/or guardian regarding: the kb historical points, exam findings, and any diagnostic results supporting the discharge/admit diagnosis, lab results, radiology results, the need for outpatient follow up, a family practitioner, to return to the emergency department if symptoms worsen or persist or if there are any questions or concerns that arise at home. 05/26 09:26 Order name: Urine Microscopic Only; Complete Time: 10:22 kb 05/26 09:34 Order name: Urine Dipstick--Ancillary (enter results) bd 05/26 09:34 Order name: Urine --Ancillary (enter results) bd 05/26 09:38 Order name: CBC with Diff; Complete Time: 10:05 kb 05/26 09:38 Order name: Basic Metabolic Panel; Complete Time: 10:22 kb 05/26 10:24 Order name: Urine Culture EDMS 05/26 09:26 Order name: Urine Dipstick-Ancillary (obtain specimen); Complete Time: 09:31 kb 05/26 09:26 Order name: Urine Test (obtain specimen); Complete Time: 09:31 kb 05/26 09:38 Order name: CT Abd/Pelvis - IV Contrast Only; Complete Time: 11:23 kb 05/26 09:38 Order name: IV Saline Lock; Complete Time: 09:59 kb 05/26 09:38 Order name: Labs collected and sent; Complete Time: 09:59 kb Administered Medications: 09:46 Drug: NS 0.9% 1000 ml Route: IV; Rate: 1000 ml; Site: right forearm; sv 10:40 Follow up: Response: No adverse reaction; IV Status: Completed infusion; IV Intake: sv 1000ml 09:46 Drug: Zofran 4 mg Route: IVP; Site: right forearm; sv 10:40 Follow up: Response: No adverse reaction sv 09:48 Drug: fentaNYL (PF) 25 mcg {Note: RASS2.} Route: IVP; Site: right forearm; sv 10:40 Follow up: Response: No adverse reaction; Pain is decreased; RASS: Alert and Calm (0) sv 11:14 Drug: fentaNYL (PF) 25 mcg {Note: RASS2.} Route: IVP; Site: right forearm; sv 11:33 Follow up: Pain 4/10 Adult; Response: No adverse reaction; Pain is decreased; RASS: sv Alert and Calm (0) 11:16 Drug: Rocephin 1 grams Route: IV; Rate: calculated rate; Site: right forearm; sv 11:18 Follow up: Response: No adverse reaction; IV Status: Completed infusion; IV Intake: 10mlsv Disposition: 14:48 Co-signature as Attending Physician, Garrett Moran MD. rn Disposition: 05/26/19 11:21 Discharged to Home. Impression: Acute tubulo-interstitial nephritis. - Condition is Stable. - Discharge Instructions: Pyelonephritis, Adult, [id number]. - Prescriptions for cefpodoxime 200 mg Oral Tablet - take 1 tablet by ORAL route every 12 hours for 10 days with food; 20 tablet. Zofran 4 mg Oral Tablet - take 1 tablet by ORAL route every 6 hours As needed; 20 tablet. Tramadol 50 mg Oral Tablet - take 1 tablet by ORAL route every 8 hours as needed; 12 tablet. - Work release form, Medication Reconciliation Form, Thank You Letter, Antibiotic Education, Prescription Opioid Use form. - Follow up: Emergency Department; When: As needed; Reason: Worsening of condition. Follow up: Private Physician; When: 2 - 3 days; Reason: Recheck today's complaints, Continuance of care, Re-evaluation by your physician. Signatures: Dispatcher [employer] Key Sun FNP-C FNP-Ckb Verde, Stephanie RN RN Garrett Gonzalez MD MD warp yarn sorter: (The following items were deleted from the chart) 11:35 11:21 05/26/2019 11:21 Discharged to Home. Impression: Acute tubulo-interstitial sv nephritis. Condition is Stable. Forms are Medication Reconciliation Form, Thank You Letter, Antibiotic Education, Prescription Opioid Use. Follow up: Emergency Department; When: As needed; Reason: Worsening of condition. Follow up: Private Physician; When: 2 - 3 days; Reason: Recheck today's complaints, Continuance of care, Re-evaluation by your physician. kb
[2019-05-26 12:18] VITALS: TEMP 98.9
[2019-05-26 12:19] VITALS: O2SAT 100
[2019-05-26 12:21] VITALS: BP 142/100
[2019-05-26 20:37] LABS: Urine Blood TRACE (NEG); Urine Glucose NEGATIVE (NEG); Urine Protein 1+ (NEG); Urine Specific Gravity 1.015 (1.005-1.030); Urine pH 6.5 (5.0-7.0)
== END 2019-05-26 11:35 | disposition home or self-care (01) ==
LOC: ER 09:07
DX: N10 Acute pyelonephritis (principal); Z88.5 Allergy status to narcotic agent
CPT/HCPCS: 96361; 87088; 85025; 87086; 80048; 36415; 81025; 87077; 87186; 74177; 96375; 96374; 99284; Q9967; J3010 ×2; J0696; J7030; J2405; 81003; 81015

== ENCOUNTER 2019-07-10 19:59 | Emergency (ER) | payer BC ==
--- OUTSIDE RECORDS SUMMARY | 2019-07-10 20:02 | XMS REPORT ---
:1990 Author Organization [facility] Address [address] [place] [address] Dr. Arguelles [address] [place] [id number] Care Team Providers Name Role Phone Unavailable Unavailable Unavailable Problems This patient has no known problems. Allergies, Adverse Reactions, Alerts This patient has no known allergies or adverse reactions. Medications This patient has no known medications.
[2019-07-10] MEDS ORDERED: IBUPROFEN 200 MG TAB PO ONE (21:20)
[2019-07-10] MEDS ORDERED: IBUPROFEN 400 MG TAB ONE (21:20)
[2019-07-10] MEDS ORDERED: HYDROCODONE/APAP 5/325 MG TAB ONE (21:24)
[2019-07-10] MEDS ORDERED: FENTANYL CITR 100 MCG/2 ML ONE (23:10)
--- NOTE | 2019-07-10 23:28 | ER ---
Nurse's Notes [facility] Name: Kaity Romeo Age: 28 yrs Sex: Female : 1990 Arrival Date: 07/10/2019 Time: 20:03 Bed 14 Private MD: Diagnosis: Sprain of shoulder joint Presentation: 07/09 20:28 Chief complaint: Patient states: Playing wrestling with 6 feet son sallie, when he ca1 dropped me I heard my R shoulder pop. Reports pain on R shoulder. Coronavirus screen: Patient denies fever greater than 100.4F, cough, shortness of breath, or difficulty breathing. Proceed with normal triage process. Ebola Screen: Patient negative for fever greater than or equal to 101.5 degrees Fahrenheit, and additional compatible Ebola Virus Disease symptoms Patient denies exposure to infectious person. Patient denies travel to an Ebola-affected area in the 21 days before illness onset. No symptoms or risks identified at this time. Initial Sepsis Screen: Does the patient meet any 2 criteria? No. Patient's initial sepsis screen is negative. Does the patient have a suspected source of infection? No. Patient's initial sepsis screen is negative. Risk Assessment: Do you want to hurt yourself or someone else? Patient reports no desire to harm self or others. Onset of symptoms was July 10, 2019. 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 - Social history:: Smoking status: Patient denies any tobacco usage or history of. Screenin:30 Abuse screen: Denies threats or abuse. Nutritional screening: No deficits noted. vc Tuberculosis screening: No symptoms or risk factors identified. Fall Risk None identified. Assessment: 20:30 General: Appears in no apparent distress. uncomfortable, Behavior is cooperative, vc appropriate for age. Pain: Complains of pain in right collar bone, shoulder, and arm. 20:30 Neuro: Level of Consciousness is awake, alert, obeys commands, Oriented to person, vc place, time, situation, Appropriate for age. Cardiovascular: Capillary refill < 3 seconds Patient's skin is warm and dry. Respiratory: Airway is patent Respiratory effort is even, unlabored, Respiratory pattern is regular, symmetrical. GI: No signs and/or symptoms were reported involving the gastrointestinal system. : No signs and/or symptoms were reported regarding the genitourinary system. EENT: No deficits noted. Musculoskeletal: Range of motion: limited in right shoulder. 21:30 Reassessment: Patient appears in no apparent distress at this time. Patient and/or vc family updated on plan of care and expected duration. Pain level reassessed. 22:30 Reassessment: Patient appears in no apparent distress at this time. Patient and/or vc family updated on plan of care and expected duration. Pain level reassessed. Patient states symptoms have not improved. 23:30 Reassessment: Patient appears in no apparent distress at this time. Patient and/or vc family updated on plan of care and expected duration. Pain level reassessed. Patient is alert, oriented x 3, equal unlabored respirations, skin warm/dry/pink. Patient states symptoms have improved. Vital Signs: 20:28 BP 156 / 117; Pulse 100; Resp 16 S; Temp 97.5(TE); Pulse Ox 100% on R/A; Weight 72.57 ca1 kg (R); Height 5 ft. 5 in. (165.10 cm) (R); Pain 10/10; 21:00 BP 160 / 119; Pulse 81; Resp 15; Pulse Ox 100% on R/A; vc 22:00 BP 155 / 110; Pulse 88; Resp 16; Pulse Ox 100% on R/A; vc 23:00 BP 151 / 111; Pulse 84; Resp 15; Pulse Ox 100% on R/A; vc 23:30 BP 128 / 115; Pulse 94; Resp 18; Pulse Ox 99% on R/A; vc 20:28 Body Mass Index 26.63 (72.57 kg, 165.10 cm) ca1 ED Course: 20:03 Patient arrived in ED. mr 20:27 Celestino Link PA is PHCP. danilo 20:27 Nelson Galloway MD is Attending Physician. jm 20:30 Triage completed. ca1 20:30 Patient has correct armband on for positive identification. Bed in low position. Pulse vc ox on. NIBP on. 20:31 Arm band placed on right wrist. ca1 21:05 Shoulder Right (2 View) XRAY In Process Unspecified. EDMS 21:11 Hattie Lemon, RN is Primary Nurse. vc 23:45 No provider procedures requiring assistance completed. Patient did not have IV access vc during this emergency room visit. Administered Medications: 21:26 Not Given (Patient Refused): Ibuprofen 600 mg PO once vc 21:27 Drug: [place] 5 mg-325 mg 1 tabs Route: PO; vc 23:46 Follow up: Response: No adverse reaction; Pain is unchanged, physician notified vc 23:13 Drug: fentaNYL (PF) 25 mcg Route: IM; Site: right ventrogluteal; vc 23:46 Follow up: Response: No adverse reaction vc Outcome: 23:28 Discharge ordered by . danilo 23:45 Discharged to home ambulatory. vc 23:45 Condition: good 23:45 Discharge instructions given to patient. 23:48 Patient left the ED. vc Signatures: Dispatcher [employer] EDMS Celestino Link PA PA jmm RiveraJojo mr Brandon, Mireya RN RN ca1 Hattie Lemon, MADELAINE RN vc
--- NOTE | 2019-07-10 23:28 | EDPHYS ---
Physician Documentation [facility] Name: Kaity Romeo Age: 28 yrs Sex: Female : 1990 Arrival Date: 07/10/2019 Time: 20:03 Bed 14 Private MD: Nelson Gore HPI: 07/09 20:42 This 28 yrs old Female presents to ER via Ambulatory with complaints of jmm Collar bone injury. 20:42 The patient or guardian complains of an injury, pain. Onset: The symptoms/episode jmm began/occurred acutely, just prior to arrival. Modifying factors: the symptoms are alleviated by remaining still, The symptoms are aggravated by movement. Associated signs and symptoms: Pertinent negatives: chest pain, neck pain, shortness of breath, tingling. 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 - Social history:: Smoking status: Patient denies any tobacco usage or history of. ROS: 20:44 Constitutional: Negative for fever, chills, and weight loss, Cardiovascular: Negative jmm for chest pain, palpitations, and edema, Respiratory: Negative for shortness of breath, cough, wheezing, and pleuritic chest pain. 20:44 MS/extremity: Positive for injury or acute deformity, pain. 20:44 All other systems are negative. Exam: 20:44 Constitutional: This is a well developed, well nourished patient who is awake, alert, jmm and in no acute distress. Head/Face: atraumatic. Eyes: EOMI, no conjunctival erythema appreciated ENT: Moist Mucus Membranes Neck: Trachea midline, Supple Chest/axilla: Normal chest wall appearance and motion. Cardiovascular: Regular rate and rhythm. No edema appreciated Respiratory: Normal respirations, no respiratory distress appreciated Abdomen/GI: Non distended, soft Back: Normal ROM 20:44 Musculoskeletal/extremity: swelling noted to the right AC region, painful adduction, full fish technologist strength, compartments soft, NVI, full radial pulse. 20:44 Skin: Appearance: Color: normal in color. 20:44 Neuro: Orientation: is normal, Mentation: is normal, Memory: is normal. 20:44 Psych: Behavior/mood is pleasant, cooperative. Vital Signs: 20:28 BP 156 / 117; Pulse 100; Resp 16 S; Temp 97.5(TE); Pulse Ox 100% on R/A; Weight 72.57 ca1 kg (R); Height 5 ft. 5 in. (165.10 cm) (R); Pain 10/10; 21:00 BP 160 / 119; Pulse 81; Resp 15; Pulse Ox 100% on R/A; vc 22:00 BP 155 / 110; Pulse 88; Resp 16; Pulse Ox 100% on R/A; vc 23:00 BP 151 / 111; Pulse 84; Resp 15; Pulse Ox 100% on R/A; vc 23:30 BP 128 / 115; Pulse 94; Resp 18; Pulse Ox 99% on R/A; vc 20:28 Body Mass Index 26.63 (72.57 kg, 165.10 cm) ca1 MDM: 20:29 Patient medically screened. marlo 23:26 Data reviewed: vital signs, nurses notes. Counseling: I had a detailed discussion with danilo the patient and/or guardian regarding: the historical points, exam findings, and any diagnostic results supporting the discharge/admit diagnosis, radiology results, the need for outpatient follow up, to return to the emergency department if symptoms worsen or persist or if there are any questions or concerns that arise at home. ED course: Patient is alert and non toxic in appearance in the ED. Patient is advised to follow up with ortho for reevaluation. Patient is otherwise given strict return precautions. Patient understood and agrees with the plan of care. . 07/09 20:38 Order name: Shoulder Right (2 View) XRAY [facility] 07/09 20:43 Order name: Ice pack; Complete Time: 21:[address] [facility] 07/09 23:46 Order name: Sling; Complete Time: 23:46 vc Administered Medications: 21:26 Not Given (Patient Refused): Ibuprofen 600 mg PO once vc 21:27 Drug: [place] 5 mg-325 mg 1 tabs Route: PO; vc 23:46 Follow up: Response: No adverse reaction; Pain is unchanged, physician notified vc 23:13 Drug: fentaNYL (PF) 25 mcg Route: IM; Site: right ventrogluteal; vc 23:46 Follow up: Response: No adverse reaction vc Disposition: 07/10 05:53 Co-signature as Attending Physician, Nelson Galloway MD I agree with the assessment and [facility] plan of care. Disposition: 07/10/19 23:28 Discharged to Home. Impression: Sprain of shoulder joint. - Condition is Stable. - Discharge Instructions: Shoulder Sprain. - Prescriptions for orphenadrine citrate 100 mg Oral Tablet Sustained Release - take 1 tablet by ORAL route 2 times per day As needed; 20 tablet. - Medication Reconciliation Form, Thank You Letter, Antibiotic Education, Prescription Opioid Use form. - Follow up: Private Physician; When: 2 - 3 days; Reason: Recheck today's complaints, Continuance of care, Re-evaluation by your physician. Signatures: Dispatcher [employer] EDNelson Mcgarry MD MD cha Mickail, Joel, PA PA jmm Acob, Cheryl RN RN Hattie Mckeon RN RN vc Corrections: (The following items were deleted from the chart) 07/09 23:48 23:28 07/10/2019 23:28 Discharged to Home. Impression: Sprain of shoulder joint. vc Condition is Stable. Forms are Medication Reconciliation Form, Thank You Letter, Antibiotic Education, Prescription Opioid Use. Follow up: Private Physician; When: 2 - 3 days; Reason: Recheck today's complaints, Continuance of care, Re-evaluation by your physician. danilo
[2019-07-10 23:53] VITALS: TEMP 97.5
[2019-07-10 23:59] VITALS: BP 128/115; O2SAT 99
--- NOTE | 2019-07-11 08:42 | RAD REPORT ---
EXAM DESCRIPTION: RAD - Shoulder Right 2 View - 07/10/2019 9:06 pm CLINICAL HISTORY: Right shoulder pain FINDINGS: Cortical irregularity involves the distal aspect of the right clavicle perhaps secondary t o old trauma. An acute fracture line is not seen. Humeral head is high riding. This probably is secondary to positioning. A humeral head superior sublu xation is considered less likely. If patient's symptoms do not improve then followup CT imaging could be obtained
== END 2019-07-10 23:48 | disposition home or self-care (01) ==
LOC: ER 19:59
DX: S43.401A Unspecified sprain of right shoulder joint, initial encounter (principal); X58.XXXA Exposure to other specified factors, initial encounter
CPT/HCPCS: 73030; 96372; 99284; J3010

== ENCOUNTER 2021-12-01 09:08 | Emergency (ER) | payer BC, OTHER ==
--- OUTSIDE RECORDS SUMMARY | 2021-12-01 09:11 | XMS REPORT | Continuity of Care Document ---
:1990 Author Organization [facility] t Address [address] [place] [address] Care Team Providers Name Role Phone PCP, PATIENT DOES NOT HAVE A Primary Care Physician Unavaila VANESSA Bo Attending Clinician Unavailable Vanessa Schumacher MD Attending Clinician STEPHANIE Attending Clinician Unavailable Abel Attending Clinician Unavailable VANESSA SCHUMACHER Admitting Clinician Unavailable STEPHANIE Admitting Clinician Unavailable Abel Admitting Clinician Unavailable Payers Payer Name Policy Type Policy Number Effective Date Expiration Date [facility] [id number] 2021 [place]ICE 00:00:00 [place] [id number] 2016 [place] (PP[place] 00:00:00 Problems Condition Condition Condition Status Onset Resolution Last Treating Co mments Source Name Details Category Date Date Treatment Clinician Date S/P S/P Disease Active Univers gastric gastric 4-14 ity of bypass bypass 00:00: [address] Morbid Morbid Disease Active 2016-04 Univers obesity obesity 2-23 [place] index 00 [place] dical of 50 or of 50 or Branch higher higher Abdominal Abdominal Disease Active 2016-04 Uni vers pain pain 2-23 ity of 00:00: [address] Intramural Intramural Disease Active U nivers leiomyoma leiomyoma 1-26 [place] [address] [place] [address] Abnormal Abnormal Disease Active Unive rs menses menses 1-26 ity of 00:00: [place] 00 [facility] Tubal Tubal Disease Active Univers ligation ligation 05-03 ity of status status 00:00: [place] 00 [facility] Allergies, Adverse Reactions, Alerts Allergy Allergy Status Severity Reaction(s) Onset Inactive Treating Comm ents Source Name Type Date Date Clinician Morphine Propensi Active Swelling Univ ers ty to 05-03 ity of adverse 00:00: [place] reaction 00 Medical s Branch MORPHINE DRUG Active ITCHING Univers INGREDI 05-03 ity of 00:00: [place] 00 [facility] Social History Social Habit Start Date Stop Date Quantity Comments Source Exposure to 2021-08-01 2021-08-11 Not sure [facility] SARS-CoV-2 (event) 00:00:00 11:37:00 Medica l [place] Alcohol intake 2021-08-11 2021-08-11 0 /d [facility] 00:00:00 00:00:00 Medical Branch Tobacco use and 2016-05-03 2016-05-03 Never used [facility] exposure 00:00:00 00:00:00 Medical Branch Sex Ass[birth year] [facility] 00:00:00 00:00:00 Medical Branch Smoking Status Start Date Stop Date Source Never smoker [facility] Medications Ordered Filled Start Stop Current Ordering Indication Dosage Frequency Signature Comments Components Source Medication Medication Date Date Medication? Clinician (SIG) Name Name metFORMIN Yes 500mg Take 500 Uni vers 500 mg 5-17 mg by ity of tablet 09:51: mouth [place] 47 daily. Medical Branch lisinopril- Yes 1{tbl} Take 1 Un kobe hydrochloro 5-17 tablet by ity of thiazide 09:51: mouth [place] 10-12.5 mg 47 daily. Medical per tablet Branch multivitami Yes [id number] 1{tbl} Take 1 Univers n tablet 4-16 tablet by ity of 00:00: mouth [place] 00 daily. Medical Branch ferrous Yes [id number] 324mg Take 1 Un kobe gluconate 4-15 tablet by ity o f 324 mg 00:00: mouth 3 [place] (37.5 mg 00 (three) Medical iron) times Branch tablet daily with meals. ondansetron Yes [id number] 4mg Take 1 Univers 4 mg 7-28 tablet by ity of disintegrat 00:00: mouth [place] ing tablet 00 every 4 Medica l (four) Branch hours as needed for Nausea and Vomiting (N/V). sucralfate 2021- No [id number] 1g Take 1 Univers 1 gram 7-28 -17 tablet by ity of tablet 00:00: 00:00 mouth [place] 00 :00 before Medical meals and Branch at bedtime. pantoprazol 2016-04 No 40mg Take 1 Uni vers e 40 mg EC 05-31-17 tablet by ity of tablet 00:00: 00:00 mouth [place] 00 :00 daily. [facility] Immunizations Ordered Filled Immunization Date Status Comments Sour e Immunization Name Name TDAP 2013-05-03 Completed [facility] 00:00:00 [facility] Vital Signs Vital Name Observation Time Observation Value Comments Source Systolic blood 2021-08-11 16:37:00 137 [facility]Hg[facility] Diastolic blood 2021-08-11 16:37:00 92 mm[Hg] [facility] Heart rate 2021-08-11 16:37:00 72 /min [facility] Body temperature 2021-08-11 16:37:00 36.5 Rajani [facility] Respiratory rate 2021-08-11 16:37:00 18 /min [facility] Body height 2021-08-11 16:37:00 165.1 cm [facility] Body weight 2021-08-11 16:37:00 73.8 kg [facility] BMI 2021-08-11 16:37:00 27.07 kg/m2 [facility] Oxygen saturation in 2021-08-11 16:37:00 98 /min [facility] Arterial blood by [facility] Pulse oximetry Branch Procedures This patient has no known procedures. Encounters Start End Encounter Admission Attending Care Care Encounter Source Date/Time Date/Time Type Type Clinicians Facility Department ID 2021-09-14 Outpatient R SUDHEER SCHUMACHER CHAYITO [id number] Univers 10:05:24 VANESSA john [facility] 2021-08-11 2021-08-11 Office SUDHEER Schumacher [id number] Univers 11:15:00 12:37:56 Visit Vanessa SPECIALTY [id number] ity of CARE [id number] [facility] AT [id number] Nh rosa elena MEDRANO [address] [place] [address] 2021-05-04 2021-05-04 Outpatient NOEL ESPARZA [facility] [id number] [place] 09:01:00 09:01:00 SSA [id number] da [facility] 2020-02-24 2020-02-24 Outpatient Branden_R [id number] [place] 02:31:00 02:31:00 [id number] da [facility] Results This patient has no known results.
[2021-12-01] MEDS ORDERED: FAMOTIDINE 20 MG/2 ML VIAL IV ONE (09:34)
[2021-12-01] MEDS ORDERED: ONDANSETRON 4 MG/2 ML VIAL ONE (09:34)
[2021-12-01] MEDS ORDERED: NA CHLORIDE 0.9% 500 ML ONE (09:34)
[2021-12-01] MEDS ORDERED: HYDROMORPHONE HCL 1 MG/ML INJ ONE (09:46)
[2021-12-01] MEDS ORDERED: NA CHLORIDE 0.9% 100 ML ONE (09:46)
[2021-12-01] MEDS ORDERED: PANTOPRAZOLE 40 MG INJ ONE (10:02)
[2021-12-01] MEDS ORDERED: MAGNES/ALUMIN/SIMET 30ML UCUP ONE (10:24)
[2021-12-01] MEDS ORDERED: LIDOCAINE VISCOUS 2% SOLN 15 ML UDC ONE (10:24)
[2021-12-01 10:36] LABS: Urine Blood Negative (Negative); Urine Glucose Negative (Negative); Urine Protein Negative (Negative); Urine pH 7.5 (5.0-7.0)
[2021-12-01 10:59] LABS: Absolute Lymphocytes (CBC) 0.7 K/uL (0.7-4.9); Lymphocytes % 11.7 % (15.3-44.8); MCV 67.2 fL (80-100); RBC Red Blood Cell Count 4.77 M/uL (3.86-4.86)
[2021-12-01 11:18] LABS: Albumin 3.9 g/dL (3.4-5.0); Bilirubin Total 0.4 mg/dL (0.2-1.0); Protein, Total 7.8 g/dL (6.4-8.2)
[2021-12-01 11:43] LABS: White Blood Cell Scan OK (OK)
[2021-12-01 11:44] LABS: Anisocytosis 1+; Blood Morphology Comment NOTED (NOT SEEN); Platelet Estimate ADEQ; Polychromasia SLIGHT
--- NOTE | 2021-12-01 12:07 | RAD REPORT ---
EXAM DESCRIPTION: CT - Abdomen Pelvis W Contrast - 12/01/2021 11:44 am CLINICAL HISTORY: Abdominal pain COMPARISON: 2019 TECHNIQUE: Computed axial tomography of the abdomen pelvis was obtained. 100 cc Isovue-300 was admin istered intravenously. Oral contrast was not requested which limits evaluation of bowel and appendix All CT scans are performed using dose optimization technique as appropriate and may include automated exposure control or mA/KV adjustment according to patient size. FINDINGS: Cholecystectomy. The liver, spleen, pancreas, adrenal and kidneys appear unremarkable. Postsurgical changes involve the stomach There is no evidence of diverticulitis. 3.1 centimeter left ovarian cyst without significant free fluid IMPRESSION: 3.1 centimeter left ovarian cyst without significant free fluid
[2021-12-01] MEDS ORDERED: HYDROMORPHONE HCL 2 MG/ML inj ONE (12:44)
--- NOTE | 2021-12-01 13:35 | EDPHYS ---
Physician Documentation [facility] Name: Kaity Romeo Age: 31 yrs Sex: Female : 1990 Arrival Date: 12/01/2021 Time: 09:13 Bed 5 Private MD: ED Physician Robert Roberts HPI: 12/01 09:42 This 31 yrs old Female presents to ER via EMS with complaints of Abdominal Pain. kdr 09:42 Patient has been having abdominal pain since about 530 this morning. She states that kdr she had some coffee and some food this morning. She is been told not to drink coffee but had for the first time a long time had some this morning. She also drank about a sixpack of beer last night. She is not sure whether it was the coffee and food this morning or the beer or combination that resulted in her current discomfort. She states that she had gastric bypass in [place] number of years ago apparently they left some object inside her abdomen at the time. About 2 months ago she had that object removed. She has had no complaints or problems since then. Today she did present with abdominal pain that was intermittent and severe. She is otherwise in good condition. Onset: The symptoms/episode began/occurred suddenly, at 05:30. Severity of symptoms: At their worst the symptoms were mild just prior to arrival, in the emergency department the symptoms are unchanged. The patient has not experienced similar symptoms in the past. The patient has not recently seen a physician. 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 - Social history:: Smoking status: Reported history of juuling and/or vaping. ROS: 09:42 Constitutional: Negative for fever, chills, and weight loss, Eyes: Negative for injury, kdr pain, redness, and discharge, Neck: Negative for injury, pain, and swelling, Cardiovascular: Negative for chest pain, palpitations, and edema, Respiratory: Negative for shortness of breath, cough, wheezing, and pleuritic chest pain, Back: Negative for injury and pain, : Negative for injury, bleeding, discharge, and swelling, MS/Extremity: Negative for injury and deformity, Skin: Negative for injury, rash, and discoloration, Neuro: Negative for headache, weakness, numbness, tingling, and seizure activity. Psych: Negative for depression, anxiety, suicide ideation, homicidal ideation, and hallucinations, Allergy/Immunology: Negative for hives, rash, and allergies, Endocrine: Negative for neck swelling, polydipsia, polyuria, polyphagia, and marked weight changes, Hematologic/Lymphatic: Negative for swollen nodes, abnormal bleeding, and unusual bruising. 09:42 Abdomen/GI: Positive for abdominal pain, nausea and vomiting, Negative for diarrhea, Her last bowel movement was yesterday, it was normal, she has had no pain in the her rectal area or bleeding.. Exam: 09:42 Constitutional: This is a well developed, well nourished patient who is awake, alert, kdr and in no acute distress. Head/Face: Normocephalic, atraumatic. Eyes: Pupils equal round and reactive to light, extra-ocular motions intact. Lids and lashes normal. Conjunctiva and sclera are non-icteric and not injected. Cornea within normal limits. Periorbital areas with no swelling, redness, or edema. Neck: Trachea midline, no thyromegaly or masses palpated, and no cervical lymphadenopathy. Supple, full range of motion without nuchal rigidity, or vertebral point tenderness. No Meningismus. Chest/axilla: Normal chest wall appearance and motion. Nontender with no deformity. No lesions are appreciated. Cardiovascular: Regular rate and rhythm with a normal S1 and S2. No gallops, murmurs, or rubs. Normal PMI, no JVD. No pulse deficits. Respiratory: Lungs have equal breath sounds bilaterally, clear to auscultation and percussion. No rales, rhonchi or wheezes noted. No increased work of breathing, no retractions or nasal flaring. Back: No spinal tenderness. No costovertebral tenderness. Full range of motion. Skin: Warm, dry with normal turgor. Normal color with no rashes, no lesions, and no evidence of cellulitis. MS/ Extremity: Pulses equal, no cyanosis. Neurovascular intact. Full, normal range of motion. Neuro: Awake and alert, GCS 15, oriented to person, place, time, and situation. Cranial nerves II-XII grossly intact. Motor strength 5/5 in all extremities. Sensory grossly intact. Cerebellar exam normal. Normal gait. Psych: Awake, alert, with orientation to person, place and time. Behavior, mood, and affect are within normal limits. 09:42 Abdomen/GI: Inspection: abdomen appears normal, Bowel sounds: active, all quadrants, Palpation: soft, mild abdominal tenderness, in the abdomen diffusely. Vital Signs: 09:14 BP 131 / 101; Pulse 76; Resp 18; Temp 98.0; Pulse Ox 100% on R/A; Weight 74.84 kg; vg1 Height 5 ft. 5 in. (165.10 cm); Pain 10/10; 10:21 Pulse 85; Pulse Ox 97% on R/A; ap3 11:48 BP 138 / 97; Pulse 74; Pulse Ox 100% ; ap3 13:04 BP 149 / 107; Pulse 91; Resp 18; Pulse Ox 100% on R/A; eh3 09:14 Body Mass Index 27.46 (74.84 kg, 165.10 cm) vg1 MDM: 09:42 Data reviewed: vital signs, nurses notes, lab test result(s), radiologic studies. kdr Counseling: I had a detailed discussion with the patient and/or guardian regarding: the historical points, exam findings, and any diagnostic results supporting the discharge/admit diagnosis, lab results, radiology results. 13:35 Patient medically screened. [facility] 12/01 09:19 Order name: CBC with Diff; Complete Time: 12:07 [facility] 12/01 09:19 Order name: CMP; Complete Time: 11:37 [facility] 12/01 09:19 Order name: Lipase; Complete Time: 11:37 [facility] 12/01 10:36 Order name: Urine Dipstick-Ancillary; Complete Time: 11:12 [facility] 12/01 10:41 Order name: Urine --Ancillary (enter results); Complete Time: 11:12 12/01 11:05 Order name: CBC Smear Scan; Complete Time: 12:07 [facility] 12/01 09:23 Order name: CT Abd/Pelvis - IV Contrast Only; Complete Time: 12:22 kdr 12/01 09:19 Order name: IV Saline Lock; Complete Time: 09:37 kdr 12/01 09:19 Order name: Labs collected and sent; Complete Time: 10:54 kdr 12/01 09:19 Order name: Urine Test (obtain specimen); Complete Time: 10:54 kdr Administered Medications: 09:38 Drug: Pepcid (famotidine) 20 mg Route: IVP; Site: right upper arm; ap3 10:19 Follow up: Response: No change in condition ap3 09:38 Drug: Zofran (Ondansetron) 4 mg Route: IVP; Site: right upper arm; ap3 10:18 Follow up: Response: No change in condition ap3 09:42 Drug: Dilaudid (HYDROmorphone) 1 mg Route: IVP; Site: right upper arm; vg1 10:19 Follow up: Response: No adverse reaction; Pain is decreased ap3 09:59 Drug: ProTONIX (pantoprazole) 40 mg Route: IVP; Site: right upper arm; tp1 10:19 Follow up: Response: Pain is decreased ap3 10:18 Drug: GI Cocktail without - (Maalox Suspension 30 ml, Lidocaine Liquid 2 % 15 ap3 ml) Route: PO; 11:27 Follow up: Response: No adverse reaction; Marked relief of symptoms ap3 10:21 Drug: NS 0.9% 500 ml Route: IV; Rate: bolus; Site: right upper arm; ap3 10:21 Follow up: IV Status: Completed infusion ap3 12:42 Drug: Dilaudid (HYDROmorphone) 2 mg Route: IVP; Site: right upper arm; eh3 13:54 Follow up: Response: No adverse reaction; Marked relief of symptoms eh3 Disposition Summary: 12/01/21 13:35 Discharge Ordered Location: Home kdr Problem: new kdr Symptoms: have improved kdr Condition: Stable kdr Diagnosis - Abdominal pain, Generalized kdr - Acute gastritis kdr - Other ovarian cysts kdr Followup: kdr - With: Private Physician - When: 2 - 3 days - Reason: If symptoms return, Further diagnostic work-up, Recheck today's complaints, Continuance of care, Re-evaluation by your physician Followup: kdr - With: Yo Ortega MD - When: 2 - 3 days - Reason: If symptoms return, Further diagnostic work-up, Recheck today's complaints, Continuance of care, Re-evaluation by your physician Discharge Instructions: - Discharge Summary Sheet kdr - Abdominal Pain, Adult, [id number] kdr Forms: - Medication Reconciliation Form kdr - Thank You Letter kdr - Prescription Opioid Use kdr - Work release form eb Prescriptions: - Zofran 4 mg Oral Tablet - take 1 tablet by ORAL route every 4-6 hours As needed; 12 tablet; Refills: 0, kdr Product Selection Permitted - Tramadol 50 mg Oral Tablet - take 1 tablet by ORAL route every 4-6 hours as needed; 12 tablet; Refills: 0, kdr Product Selection Permitted Signatures: Dispatcher [employer] Robert Reilly MD MD kdr Joyce Luu RN RN Radhika Hannon RN RN ap3 Eryn Kapadia RN RN vg1 Joanne Amaya RN RN tp1 Anushka Velez, RN RN eh3
--- NOTE | 2021-12-01 13:35 | ER ---
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 Coronavirus screen: Vaccine status: Patient reports being unvaccinated. Client denies travel out of the [place] in the last 14 days. Ebola Screen: Patient denies exposure to infectious person. Patient denies travel to an Ebola-affected area in the 21 days before illness onset. Initial Sepsis Screen: Does the patient meet any 2 criteria? No. Patient's initial sepsis screen is negative. Does the patient have a suspected source of infection? No. Patient's initial sepsis screen is negative. Risk Assessment: Do you want to hurt yourself or someone else? Patient reports no desire to harm self or others. Onset of symptoms was December 01, 2021. Care prior to arrival: Medication(s) given: Fentanyl 50 mcg IM left shoulder BG 124. 09:14 Method Of Arrival: EMS: [facility] vg1 09:14 Acuity: GAGE 3 vg1 Triage Assessment: 09:17 General: Appears in no apparent distress. uncomfortable, Behavior is calm, cooperative. vg1 Pain: Complains of pain in epigastric area Pain currently is 10 out of 10 on a pain scale. Quality of pain is described as burning, Pain began 1 hour ago. Is intermittent, Noted to be grimacing, guarding, moaning. EENT: No signs and/or symptoms were reported regarding the EENT system. Neuro: Level of Consciousness is awake, alert, obeys commands, Oriented to person, place, time, situation. Cardiovascular: Patient's skin is warm and dry. Respiratory: Airway is patent Respiratory effort is even, unlabored. GI: Abdomen is round Abdomen is tender to palpation in epigastric area Reports nausea, vomiting. : No signs and/or symptoms were reported regarding the genitourinary system. Derm: Skin is pink, warm \\T\\ dry. Musculoskeletal: Circulation, motion, and sensation intact. 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 - Social history:: Smoking status: Reported history of juuling and/or vaping. Screenin: Abuse screen: Denies threats or abuse. Nutritional screening: No deficits noted. vg1 Tuberculosis screening: No symptoms or risk factors identified. Fall Risk No fall in past 12 months (0 pts). No secondary diagnosis (0 pts). IV access (20 points). Ambulatory Aid- None/Bed Rest/Nurse Assist (0 pts). Gait- Normal/Bed Rest/Wheelchair (0 pts) Mental Status- Oriented to own ability (0 pts). Total Thompson Fall Scale indicates No Risk (0-24 pts). Assessment: :21 Reassessment: SEE TRIAGE. vg1 12:20 Reassessment: Complains of burning in epigastric area, rated 7/10. States medications eh3 administered previously relieved pain to 2/10 but pain has gradually increased. Requests Nexium, but hospital does not carry that specific drug. Verbalized understanding that Protonix is a proton pump inhibitor which works the same way as Nexium. 12:20 GI: Bowel sounds present X 4 quads. eh3 Vital Signs: 09:14 BP 131 / 101; Pulse 76; Resp 18; Temp 98.0; Pulse Ox 100% on R/A; Weight 74.84 kg; vg1 Height 5 ft. 5 in. (165.10 cm); Pain 10/10; 10:21 Pulse 85; Pulse Ox 97% on R/A; ap3 11:48 BP 138 / 97; Pulse 74; Pulse Ox 100% ; ap3 13:04 BP 149 / 107; Pulse 91; Resp 18; Pulse Ox 100% on R/A; eh3 09:14 Body Mass Index 27.46 (74.84 kg, 165.10 cm) vg1 ED Course: 09:13 Patient arrived in ED. vg1 09:17 Triage completed. vg1 09:17 Arm band placed on. vg1 09:18 Robert Roberts MD is Attending Physician. kdr 09:22 Patient has correct armband on for positive identification. Bed in low position. Call vg1 light in reach. Side rails up X 1. 09:37 Radhika Psator, MADELAINE is Primary Nurse. ap3 09:38 Inserted saline lock: 22 gauge in right upper arm, using aseptic technique. ap3 10:40 Urine collected: clean catch specimen, clear. dh3 10:50 Initial lab(s) drawn, by me, sent to lab. Missed attempt(s): 22 gauge in right dh3 antecubital area. Bleeding controlled, band aid applied, catheter tip intact. 11:46 CT Abd/Pelvis - IV Contrast Only In Process Unspecified. EDMS 12:15 Primary Nurse role handed off by Radhika Pastor, MADELAINE eh3 12:15 Anushka Velez RN is Primary Nurse. eh3 13:34 Yo Ortega MD is Referral Physician. kdr 13:54 No provider procedures requiring assistance completed. IV discontinued, intact, eh3 bleeding controlled, No redness/swelling at site. Pressure dressing applied. Administered Medications: 09:38 Drug: Pepcid (famotidine) 20 mg Route: IVP; Site: right upper arm; ap3 10:19 Follow up: Response: No change in condition ap3 09:38 Drug: Zofran (Ondansetron) 4 mg Route: IVP; Site: right upper arm; ap3 10:18 Follow up: Response: No change in condition ap3 09:42 Drug: Dilaudid (HYDROmorphone) 1 mg Route: IVP; Site: right upper arm; vg1 10:19 Follow up: Response: No adverse reaction; Pain is decreased ap3 09:59 Drug: ProTONIX (pantoprazole) 40 mg Route: IVP; Site: right upper arm; tp1 10:19 Follow up: Response: Pain is decreased ap3 10:18 Drug: GI Cocktail without - (Maalox Suspension 30 ml, Lidocaine Liquid 2 % 15 ap3 ml) Route: PO; 11:27 Follow up: Response: No adverse reaction; Marked relief of symptoms ap3 10:21 Drug: NS 0.9% 500 ml Route: IV; Rate: bolus; Site: right upper arm; ap3 10:21 Follow up: IV Status: Completed infusion ap3 12:42 Drug: Dilaudid (HYDROmorphone) 2 mg Route: IVP; Site: right upper arm; eh3 13:54 Follow up: Response: No adverse reaction; Marked relief of symptoms eh3 Medication: 09:22 VIS not applicable for this client. vg1 Outcome: 13:35 Discharge ordered by . kdr 13:54 Discharged to home ambulatory. eh3 13:54 Condition: stable 13:54 Discharge instructions given to patient, Instructed on discharge instructions, follow up and referral plans. medication usage, Demonstrated understanding of instructions, follow-up care, medications, Prescriptions given X 2. 13:55 Patient left the ED. 3 Signatures: Dispatcher [employer] EDMS Robert Roberts MD MD [facility] Elyssa Brooks 3 Radhika Pastor RN RN ap3 Eryn Kapadia, RN RN vg1 Joanne Amaya, RN RN tp1 Anushka Velez RN RN eh3
[2021-12-01 14:50] VITALS: TEMP 98
[2021-12-01 15:03] VITALS: O2SAT 100
[2021-12-01 15:11] VITALS: BP 149/107
== END 2021-12-01 13:55 | disposition home or self-care (01) ==
LOC: ER 09:08
DX: K29.00 Acute gastritis without bleeding (principal); N83.299 Other ovarian cyst, unspecified side; Z88.5 Allergy status to narcotic agent
CPT/HCPCS: 85025; 36415; 81025; 81003; 83690; 80053; 74177; 96375; 96374; 99284; Q9967; C9113; J1170 ×2; J7040; J2405